=== PATIENT | male | born 1935 | race Caucasian/White ===

== ENCOUNTER 2022-02-24 08:44 | Emergency (ER) | payer OTHER, MEDICARE | END 2022-02-24 09:35 | disposition home or self-care (01) | LOC: VM.ED 08:44 | DX: S81.012A Laceration without foreign body, left knee, initial encounter (principal); Z79.82 Long term (current) use of aspirin; Z79.899 Other long term (current) drug therapy; Z79.01 Long term (current) use of anticoagulants; W06.XXXA Fall from bed, initial encounter | CPT/HCPCS: 99282; 99283 ==